=== PATIENT | female | born 1955 | race Caucasian/White ===

== ENCOUNTER 2020-09-10 19:29 | Emergency (ER) | payer OTHER ==
[~2020-09-10 19:29] MED LIST: ALL DAY ALLERGY10 M3 PO; ASPIR 8181 MG PO; BACTRIM DS TAB1 EACH PO; BACTROBAN OINT22 GM EXT; BASAGLAR; CEFUROXIME500 MG PO; COLACE 100MG C100 MG PO; GLUCOPHAGE1000 MG PO; KEFLEX CAP 500500 MG PO; LIPITOR TAB 2020 MG PO; LORTAB 5-325 M1 EACH PO; NEURONTIN 300300 MG PO; NORFLEX 100 MG100 MG PO; NOVOLOG 10100 UNITS2 INJ; OMEPRAZOLE40 MG PO; PROTONIX40 M1 PO; SILVADENE CREAM20 GM EXT; UN SQ; Voltaren Gel 1 % TOP; ZOFRAN ODT 4 MG4 MG PO; ZOFRAN4 MG PO; [UNRECOGNIZED DRUG - OTHER] IV
== END 2020-09-10 21:20 | disposition home or self-care (01) ==
LOC: ER1 19:29
DX: M25.561 Pain in right knee (principal); M79.604 Pain in right leg; E11.9 Type 2 diabetes mellitus without complications; E78.5 Hyperlipidemia, unspecified; F17.210 Nicotine dependence, cigarettes, uncomplicated; Z90.49 Acquired absence of other specified parts of digestive tract; Z90.89 Acquired absence of other organs
CPT/HCPCS: 73564; 99283

== ENCOUNTER 2021-02-18 11:24 | Emergency (ER) | payer OTHER ==
[2021-02-18 12:33] LABS: HEMOGLOBIN 12.5 gm/dl (12.3-15.3); RED BLOOD COUNT 3.97 M/UL (4.00-5.10); WHITE BLOOD COUNT 8.9 K/UL (4.5-11.0)
[2021-02-18 12:56] LABS: BUN/CREATININE RATIO 11 (0-10)
[2021-02-18] MEDS ORDERED: MACROBID 100 M100 MG PO (16:20)
== END 2021-02-18 16:58 | disposition home or self-care (01) ==
LOC: ER1 11:24
PROVIDERS: Emergency Medicine
DX: R10.9 Unspecified abdominal pain (principal); E87.6 Hypokalemia; R30.0 Dysuria; E11.9 Type 2 diabetes mellitus without complications; F17.200 Nicotine dependence, unspecified, uncomplicated; Z90.49 Acquired absence of other specified parts of digestive tract
CPT/HCPCS: 80053; 81001; 83605; 83690; 85025; 87040; 87086; 96374; 96375; 99284; J2270; J2405; J7030

== ENCOUNTER → 2021-03-10 | Outpatient (CLI) | payer OTHER ==
[~2021-03-10] MED LIST changes: +MACROBID 100 M100 MG PO
== END ==
LOC: MAMO 07:23
DX: Z12.31 Encounter for screening mammogram for malignant neoplasm of breast (principal)
CPT/HCPCS: 77063; 77067